=== PATIENT | female | born 1990 | race African-American/Black ===

== ENCOUNTER 2018-06-03 18:42 | Emergency (ER) | payer OTHER ==
[~2018-06-03] VITALS: Ht 162.6 cm; Wt 138.3 kg
[2018-06-03 20:08] VITALS: BP 132/78
== END 2018-06-03 20:08 | disposition home or self-care (01) ==
LOC: ER 18:42
DX: J30.9 Allergic rhinitis, unspecified (principal); I10 Essential (primary) hypertension

== ENCOUNTER → 2018-08-26 | Outpatient (CLI) | payer OTHER | LOC: ULTRA 10:03 | DX: N88.8 Other specified noninflammatory disorders of cervix uteri (principal) ==

== ENCOUNTER 2018-11-07 20:46 | Emergency (ER) | payer OTHER ==
[~2018-11-07] VITALS: Ht 160 cm; Wt 133.8 kg
[2018-11-07] MEDS ORDERED: AMLODIPINE BESY10 MG PO (20:54)
[2018-11-07 21:18] LABS: ABSOLUTE NEUTROPHILS 4.1 thou/uL (1.4-8.2); BASOPHILS 0.8 % (0.0-2.0); EOSINOPHILS 3.4 % (0.0-3.0); HEMATOCRIT 36.5 % (37.0-47.0); HEMOGLOBIN 11.6 gm/dL (12.0-15.0); LYMPHOCYTES 22.2 % (24.0-44.0); MCH 24.6 pg (26.0-34.0); MCHC 31.7 g/dL (28.0-37.0); MCV 77.4 fL (80.0-100.0); MONOCYTES 8.7 % (1.0-8.0); PLATELET COUNT 252 thou/uL (150-400); POLYS 64.9 % (36.0-66.0); RBC 4.71 mil/uL (4.20-5.00); RDW 16.4 % (10.5-14.5); WBC 6.3 thou/uL (4.0-11.0)
[2018-11-07 21:21] LABS: ANION GAP 7 mmol/L (7-16); BUN 11 mg/dL (7-18); CALCIUM 9.3 mg/dL (8.5-10.1); CHLORIDE 104 mmol/L (98-107); CO2 30 mmol/L (21-32); GLUCOSE 107 mg/dL (74-106); POTASSIUM 3.4 mmol/L (3.5-5.1); SODIUM 141 mmol/L (136-145)
[2018-11-07 21:31] LABS: ALBUMIN 3.7 g/dL (3.4-5.0); SGOT 18 U/L (15-37); SGPT 25 U/L (30-65); TOTAL BILIRUBIN 0.2 mg/dL (<0.1-1.0); TOTAL PROTEIN 7.7 g/dL (6.4-8.2); TROPONIN-I <0.06 ng/mL (<0.06)
[2018-11-07] MEDS ORDERED: VENTOLIN HFA 1818 GM INH (22:42)
[2018-11-07] MEDS ORDERED: IBUPROFEN 600600 M1 PO (22:42)
[2018-11-07] MEDS ORDERED: PREDNISONE 20 M20 MG PO (22:42)
[2018-11-08 00:05] VITALS: BP 152/74
--- NOTE | 2018-11-08 10:56 | EKG ---
[place] [address] [address] [place] [address] ELECTROCARDIOGRAM REPORT Name: MARCELO PATHAK Room #: DEP ARJUN Ocampo#: [id number] ������������������ Admission: 11/07/18 ������������������ Attend Phys: Discharge: 11/08/18 ������������������ Date of : 86 Report #: [id number] ����������������������������������������������������������������� [id number] THIS REPORT FOR: //name// [facility] ED Test Date: 2018-11-07 Test Time: 20:49:51 Pat Name: MARCELO PATHAK Department: Room: Gender: F [employer] Division Director: [place] : 1990 Requested By: Justyna Wells Order Number: [id number] MD: Surjit House Measurements Intervals [place] Rate: 101 P: 32 NH: 178 QRS: 25 QRSD: 90 T: QT: 373 QTc: 484 Interpretive Statements Sinus tachycardia Borderline abnrm T, anterolateral leads Borderline prolonged QT interval No previous ECG available for comparison Electronically Signed On 11-08-2018 10:56:11 CDT by Surjit House [email or web address] ��������������������������������������������� <ELECTRONICALLY SIGNED> ���������������������������������������� By: Surjit House MD ��������������������������������������������� 11/08/18 1056 2049 2049 Surjit House MD /EPI
== END 2018-11-08 00:05 | disposition home or self-care (01) ==
LOC: ER 20:46
PROVIDERS: Nurse Practitioner Family
DX: J40 Bronchitis, not specified as acute or chronic (principal); I10 Essential (primary) hypertension